=== PATIENT | male | born 1995 | race African-American/Black ===

== ENCOUNTER 2016-06-01 01:52 | Emergency (ER) | payer SELFPAY ==
[2016-06-01] MEDS ORDERED: CLINDAMYCIN 600 MG/4 ML VIAL ONE (02:24)
[2016-06-01] MEDS ORDERED: BUPIVACAINE 0.75% PF 10ML ONE (02:27)
== END 2016-06-01 03:04 | disposition home or self-care (01) ==
LOC: ER 01:52
DX: K08.89 Other specified disorders of teeth and supporting structures (principal)
CPT/HCPCS: 96372